=== PATIENT | male | born 1930 | race Caucasian/White ===

== ENCOUNTER 2017-04-09 10:12 | Inpatient (IN) ==
[2017-04-09] MEDS ORDERED: SODIUM CHLORIDE 0.9% 500 ML IV STA ×2 (10:22→12:27)
--- NOTE | 2017-04-09 10:38 | EKG Report ---
Stationary ECG Study [facility] ER Test Date: 04/09/2017 10:37:04 AM Pat Name: KEMAR HEMPHILL Department: Room: Gender: M Human Resources Safety Manager: : [id number] Requested by: Mauri Newman Order Number: [id number] Reading MD: YUE CASON Intervals [place] Rate: 73 P: 48 SD: 206 QRS: -52 QRSD: 167 T: 57 QT: 430 QTc: 456 Interpretive Statements SINUS RHYTHM WITH OCCASIONAL VENTRICULAR PREMATURE COMPLEXES RIGHT BUNDLE BRANCH BLOCK Electronically Signed On 04-11-17 12:14:02 CDT by YUE CASON [email or web address]
--- NOTE | 2017-04-09 10:41 | Emergency Department Note ---
Debra Drake Mantricia, am scribing for, and in the presence of, Mauri Spring MD 10:37. Clementine Drake James D, MD, personally performed the services described in this documentation, ascribed by Ashvin Richardson in my presence, and it is both accurate and complete 041 . Arrival - Arrival Chief Complaint: Abdominal / Flank Pain Stated Complaint: skin yellow, eyes yellow, stomach pain ED Nursing Triage Note: C/o LUQ pain and jaundice-onset "about two weeks ago", worse since yesterday. Mode of Arrival: Wheelchair Limitations: No Limitations Source: Patient - History of Present Illness HPI Narrative: Pt is an 87 y/o white male arriving to ED via wheelchair with c/o abdominal pain that onset 2 weeks ago. Family reports that pt was seen by [facility] nurse yesterday that performed labs on pt. [facility] states that pt may have a possible UTI with elevated liver enzymes and that his blood culture results would be back tomorrow. Daughter reports that pt has had dark urine for the past 2 weeks also along with jaundice all over. Pt denies any dysuria or blood in urine. Daughter states that pt does not smoke or drink but has done both heavily in his younger years. Pt has a PMHx of DM, HTN, and diverticulitis. No other complaints were reported to ED. Onset (ago): week(s) Consistency: constant Severity: mild Allergies/Adverse Reactions: Allergies Allergy/AdvReac Type Severity Reaction Status Date / Time No Known Allergies Allergy Verified 04/09/17 10:16 Home Medications: Home Medications Medication Instructions Recorded Confirmed Type Aspirin EC Tab 1 tablet PO QAM 06/22/15 04/09/17 History Atorvastatin Calcium [Lipitor] 40 mg PO BEDTIME 06/22/15 04/09/17 History Cetirizine HCl [Cetirizine Tab] 10 mg PO QAM 06/22/15 04/09/17 History Donepezil HCl 10 mg PO QAM 06/22/15 04/09/17 History Doxepin HCl 50 mg PO BEDTIME 06/22/15 04/09/17 History Gabapentin [Neurontin] 400 mg PO 0800,1400,2000 06/22/15 04/09/17 History Memantine HCl 10 mg PO BID 06/22/15 04/09/17 History Multivitamin [Multivitamins] 1 tablet PO QAM 06/22/15 04/09/17 History [place]-3S/Dha/Epa/Fish Oil [Fish 2 each PO BID 06/22/15 04/09/17 History Oil 1,200 mg Softgel] Ranitidine Tab [Zantac Tab] 150 mg PO BID 06/22/15 04/09/17 History Risperidone 0.5 mg PO BEDTIME 06/22/15 04/09/17 History Sertraline HCl 50 mg PO QAM 06/22/15 04/09/17 History Alfuzosin HCl [Alfuzosin HCl ER] 10 mg PO QPM 10/24/16 04/09/17 History Gluc/Kemal-MSM#1/C/Min/Esteban/Bor 1 each PO BID 10/24/16 04/09/17 History [Osteo Bi-Flex Caplet] Insulin NPH Hum/Reg Insulin Hm 46 unit SUBCUT BID PRN 10/24/16 04/09/17 History [NovoLIN 70/30] Nitroglycerin Sl Tab [Nitrostat] 0.4 mg SL Q5M PRN #0 tablet 10/26/16 04/09/17 Rx Acetaminophen 325 mg PO BID PRN 04/09/17 04/09/17 History Lisinopril 2.5 mg PO QAM 04/09/17 04/09/17 History Review of System - Review of System 12 point system: reviewed and no additional remarkable complaints except as stated - Review of System Constitutional: Absent: chills, diaphoresis, fever Respiratory: Absent: cough Cardiovascular: Absent: chest pain, palpitations Gastrointestinal: Present: abdominal pain. Absent: nausea, vomiting, diarrhea Musculoskeletal: Absent: arm pain, back pain, leg pain, neck pain Skin: Present: change in color, other (jaundice). Absent: rash, lesions Medical,Surgical,& Family Hx - Medical History Cardio: History of: CAD (prior LAD stent placed around 2001), Hypertension, [place], Valvular Heart Disease (status post aortic valve replacement) Neurology: History of: Cerebrovascular Accident (left side 5/6 years ago), Dementia, Peripheral Neuropathy, Neurological Problems (tardive dyskinesia) Endocrine: History of: Diabetes Mellitus (IDDM), Dyslipidemia Respiratory: History of: COPD, Obstructive Sleep Apnea - Surgical History Cardiac Surgeries: Sugical HX of: Cardiac Catheterization (stents placed), Cardiac Surgery (aortic valve replacement) HEENT Surgeries: Surgical HX of: Tonsilectomy & Adenoidectomy Abdominal Surgeries: Surgical HX of: Appendectomy Orthopedic Surgeries: Surgical HX of;: Orthopedic Surgery (bilateral rotator cuff surgery), Total Knee Replacement (right) - Family History Family History: Reports;: Family Diabetes (mother), Family Heart Disease (mother ), Family Hypertension (mother) - Social History Smoking Status: Never smoker Frequency of Alcohol Use: None Type of Drug Use: None Exam Physical Examination: ADULT: GENERAL: This is a well-nourished, well-developed white male in no apparent distress. VITAL SIGNS: Reviewed HEENT: Head is normocephalic and atraumatic. Pupils are equally round and reactive to light. Extraocular movement are intact. Scleral icterus. Oropharynx is benign with moist mucous membranes. NECK: Neck is soft and supple without tenderness. There are no masses. There is no lymphadenopathy. LUNGS: Lungs are clear to auscultation bilaterally. Chest rises symmetrically. There is no chest wall tenderness. CV: Heart is regular rate and rhythm without murmurs, rubs, or gallops. ABDOMEN: Abdomen is soft, tender to palpation in upper quadrants. There are no abnormal masses palpated. There is no organomegaly. Bowel sounds are present and active. SKIN: Skin is warm and dry with jaundice noted. No rash. EXTREMITIES: Patient has full range of motion without tenderness. There is no pedal edema. NEUROLOGIC: Awake, alert, and oriented x4. Cranial nerves II through XII are grossly intact. There are no motorsensory deficits. PSYCHIATRIC: Normal affect. Normal mood. Vital Signs: Vital Signs Temperature 98.1 F 04/09/17 11:21 Pulse Rate 52 L 04/09/17 12:01 Respiratory Rate 16 04/09/17 12:01 Blood Pressure 136/50 04/09/17 12:01 O2 Sat by Pulse Oximetry 99 04/09/17 12:01 Course - Consultations Consultation #1: Discussed with hospitalist. Patient will be admitted to their service. Time: 12:33 Results - Labs CBC & BMP: 04/09/17 10:58 04/09/17 10:58 Lab Results: I have reviewed the patients labs Labs: Laboratory Tests 04/09/17 04/09/17 10:22 10:58 Lipase 1199.0 H Urine pH 5.0 Ur Specific [place] 1.013 Urine Protein 100 Urine RBC 1 Urine WBC 4 - EKG EKG results: interpreted by ERMD - Impressions EKG: Sinus rhythm with occasional PVCs, right bundle branch block, low voltage QRS in precordial leads. - Diagnostic Findings Procedure: Abdominal x-ray: image reviewed by me (Nonspecific gas pattern, no free air, gas in the rectum.), Chest x-ray: image reviewed by me (Old median sternotomy, no infiltrates, no pleural effusions), Ultrasound: report reviewed by me (Gallbladder ultrasound: Distended gallbladder with sludge present) Disposition Clinical Impression: Abdominal pain, Jaundice, Cholelithiasis, Acute pancreatitis Case discussed with: patient, patient's family Disposition: Still a Patient Condition: Stable Time of Disposition: 12:30
[2017-04-09 11:08] LABS: Basophils % 0.3 % (0.0-0.8); Eosinophils # 0.1 10*3/uL (0.0-0.87); Eosinophils % 1.9 % (0.00-10.9); Hematocrit 31.3 VOL% (42.0-52.0); Hemoglobin 10.4 GM/DL (14.0-18.0); Immature Granulocytes % 0.3 %; Immature Granulocytes Absolute 0.02 #; Lymphocytes # 1.3 10*3/uL (1.4-4.0); Lymphocytes % 17.8 % (21.2-54.2); Mean Corpuscular HGB Conc 33.2 GM/DL (32-36); Mean Corpuscular Hemoglobin 30 PG (27-34); Mean Corpuscular Volume 88.7 FL (87-102); Mean Platelet Volume 11.7 FL (9.6-12.0); Monocytes # 0.9 10*3/uL (0.11-0.8); Monocytes % 11.8 % (1.7-12.7); Neutrophils # 5.1 10*3/uL (1.4-7.4); Neutrophils % 67.9 % (38.7-73.9); Platelet Count 113 T/CUMM (130-400); Red Blood Count 3.53 MC/CUMM (3.8-5.5); Red Cell Distribution Width 16.3 % (9.3-17.3); White Blood Count 7.5 T/CUMM (4-12)
--- NOTE | 2017-04-09 11:38 | XRay Report ---
History: Abdominal pain Date: 04/09/2017 Study: Chest x-ray AP portable Comparison exam: October 24, 2016 There is stable borderline cardiomegaly. The patient is status post previous median sternotomy and aortic valve replacement. There is no new mediastinal mass. The pulmonary vasculature is not engorged. There is no gross pleural effusion. There are some chronic lung changes. There is mild platelike subsegmental atelectasis in the right midlung. There is no definite acute infiltrate to suggest pneumonia. There is mild to moderate thoracic spondylosis and mild osteopenia. Surgical screws overlie the right humeral head. Impression: Shallow inspiration. No definite acute process compared to the previous study PROCEDURE INTERPRETED AT [facility] [place] DEPARTMENT OF RADIOLOGY Final Report Signed by: Dr. Conchis Solis
--- NOTE | 2017-04-09 11:41 | XRay Report ---
History: Abdominal pain Date: 04/09/2017 Study: Flat and decubitus abdomen x-ray Comparison exam: CT abdomen February 20, 2016 There is no evidence of pneumoperitoneum. The bowel gas pattern is nonspecific without jennie mechanical obstruction or gross mass lesion. Some occasional air filled loops of large and small bowel are scattered over the abdomen. No gross radiopaque calculi are seen. There is mild to moderate lumbar spondylosis. Impression: No definite acute abdominal process PROCEDURE INTERPRETED AT [facility] DEPARTMENT OF RADIOLOGY Final Report Signed by: Dr. Conchis Solis
[2017-04-09 11:43] LABS: Bilirubin,Total 6.5 MG/DL (0.2-1.0); Calcium 9.4 MG/DL (8.5-10.1); Osmolality,Calculated 293.3 MOS/KG (273-304); Potassium 3.7 MMOL/L (3.5-5.1); Total Protein 7.5 G/DL (6.4-8.3)
[2017-04-09 12:10] LABS: Apearance,Urine CLOUDY (Clear); Bilirubin,Urine Negative (Negative); Blood, Urine Small mg/dL (Negative); Glucose,Urine (UA) Negative (Negative); Granular Casts,Urine 28 /LPF (0-1); Ketones,Urine Negative (Negative); Mucus,Urine Occasional /LPF (Occasional); Nitrite,Urine Negative (Negative); Protein,Urine 100 MG/DL; RBC,Urine 1 /HPF (0-4); Squamous Epithelial Cell,Urine Occasional /HPF (0-10); Urine Color Amber (Yellow); Urine Specific Gravity 1.013 (1.001-1.035); WBC,Urine 4 /HPF (0-6)
--- NOTE | 2017-04-09 12:16 | Ultrasound Report ---
Exam: US abdomen complete Date:04/09/2017 10:25 AM Comparison: January 01, 2009 Indication: Abdominal pain Technique: Real-time ultrasound images are captured and archived. Findings: The pancreas is largely obscured by bowel gas. There is no focal hepatic mass. There is hepatopedal flow in the portal vein. The gallbladder is moderately distended and contains a moderate amount of hypoechoic sludge. There is no gallbladder wall thickening. There is no abnormal biliary dilatation of significance. There is no hydronephrosis. There is no renal lesion on the right. There are 2 simple cysts of the left kidney, the larger of which measures 24 mm. There is no splenic mass. The IVC is grossly patent where seen. The abdominal aorta is largely obscured by bowel gas. Impression: Sludge in the gallbladder. No classic shadowing gallstones. Benign simple renal cyst left kidney IMPORTANT MEASUREMENTS Liver Length: 18.2 cm cm Gallbladder Wall Thickness: 2.7 mm mm CBD: 6 mm mm Pancreas: Spleen: Length 11.6 cm cm Width 4.9 cm cm Right kidney: Length: 10.9 cm cm Width: 5.2 cm cm AP: 5.3 cm cm Left kidney: Length: 11 cmcm Width 4.8 cm cm AP 5.4 cmcm The Ultrasound images were captured and stored. PROCEDURE INTERPRETED AT [facility] [place] DEPARTMENT OF RADIOLOGY Final Report Signed by: Dr. Conchis Solis
[2017-04-09] MEDS ORDERED: DOCUSATE SODIUM 100 MG CAPSULE PO PRN (13:07)
[2017-04-09] MEDS ORDERED: ACETAMINOPHEN 325 MG TABLET PO PRN (13:07)
--- NOTE | 2017-04-09 14:52 | Hospitalist History & Physical ---
Assessment and Plan - Time spent with patient Time spent with patient: Greater than 30 minutes (1) Abdominal pain Status: Acute Assessment and plan: 04/09/17 - Admit to hospitalist services. Will start fluids. Will start antibiotics. Will repeat labs in a.m. Will consult GI. Current Visit: Yes (2) Acute pancreatitis Status: Acute Assessment and plan: MILD and stable. NPO. Start fluids. Will consult GI for further evaluation of abdominal pain. Current Visit: Yes (3) Jaundice Status: Acute Assessment and plan: Admit. Monitor. Repeat labs. Consult GI. Start antibiotics. Current Visit: Yes History of Present Illness Chief complaint: abdominal pain/flank pain History of present illness: Mr. Vallecillo is a 87 year old white male presented to [facility] ED for c/ o abdominal and flank pain with onset 2 weeks ago. PMHx: Diabetes, HTN, [place], Valvular disease (aortic valve replacement), CVA (5 years ago), Dementia, Peripheral neuropathy, Tardive dyskinesia, COPD, Obstructive Sleep Apnea, diverticulitis. Patient verbalized lower abdominal pain more on the left side but has generalized pain. Family reports patient was seen at the [facility] yesterday with lab work drawn, the nurse informed them of possible UTI and elevated liver enzymes. Blood cultures were drawn, results possibly tomorrow. Daughter reports patient has had dark urine for approximately 2 weeks with jaundice all over. Patient denies shortness of breath, fever, chills, nausea or vomiting. Patient does not currently drink alcohol but did in younger years , heavily. Denies smoking. Lipase 1199.0, AST 344, ALT 442, Total Bilirubin 6.50. BUN 43 and Creatinine 2.50 PCP: [facility] (home health), Dr Sanchez and Cardiology: Dr Serra After discussion with Dr Spring in ED and Dr Christy with Hospitalist services, it was in agreement to admit patient for further evaluation and management. Home medications will be reviewed and reconciliation to follow. Home Medications Medication Instructions Recorded Confirmed Type Aspirin EC Tab 1 tablet PO QAM 06/22/15 04/09/17 History Atorvastatin Calcium [Lipitor] 40 mg PO BEDTIME 06/22/15 04/09/17 History Cetirizine HCl [Cetirizine Tab] 10 mg PO QAM 06/22/15 04/09/17 History Donepezil HCl 10 mg PO QAM 06/22/15 04/09/17 History Doxepin HCl 50 mg PO BEDTIME 06/22/15 04/09/17 History Gabapentin [Neurontin] 400 mg PO 0800,1400,199906/22/15 04/09/17 History Memantine HCl 10 mg PO BID 06/22/15 04/09/17 History Multivitamin [Multivitamins] 1 tablet PO QAM 06/22/15 04/09/17 History [place]-3S/Dha/Epa/Fish Oil [Fish 2 each PO BID 06/22/15 04/09/17 History Oil 1,200 mg Softgel] Ranitidine Tab [Zantac Tab] 150 mg PO BID 06/22/15 04/09/17 History Risperidone 0.5 mg PO BEDTIME 06/22/15 04/09/17 History Sertraline HCl 50 mg PO QAM 06/22/15 04/09/17 History Alfuzosin HCl [Alfuzosin HCl ER] 10 mg PO QPM 10/24/16 04/09/17 History Gluc/Kemal-MSM#1/C/Min/Esteban/Bor 1 each PO BID 10/24/16 04/09/17 History [Osteo Bi-Flex Caplet] Insulin NPH Hum/Reg Insulin Hm 46 unit SUBCUT BID PRN 10/24/16 04/09/17 History [NovoLIN 70/30] Nitroglycerin Sl Tab [Nitrostat] 0.4 mg SL Q5M PRN #0 tablet 10/26/16 04/09/17 Rx Acetaminophen 325 mg PO BID PRN 04/09/17 04/09/17 History Lisinopril 2.5 mg PO QAM 04/09/17 04/09/17 History Allergies Allergy/AdvReac Type Severity Reaction Status Date / Time No Known Allergies Allergy Verified 04/09/17 10:16 Medical,Surgical,& Family Hx - Medical History Cardio: History of: CAD (prior LAD stent placed around 2001), Hypertension, [place], Valvular Heart Disease (status post aortic valve replacement) Neurology: History of: Cerebrovascular Accident (left side 5/6 years ago), Dementia, Peripheral Neuropathy, Neurological Problems (tardive dyskinesia) Endocrine: History of: Diabetes Mellitus (IDDM), Dyslipidemia Respiratory: History of: COPD, Obstructive Sleep Apnea - Surgical History Cardiac Surgeries: Sugical HX of: Cardiac Catheterization (stents placed), Cardiac Surgery (aortic valve replacement) HEENT Surgeries: Surgical HX of: Tonsilectomy & Adenoidectomy Abdominal Surgeries: Surgical HX of: Appendectomy Orthopedic Surgeries: Surgical HX of;: Orthopedic Surgery (bilateral rotator cuff surgery), Total Knee Replacement (right) - Family History Family History: Reports;: Family Diabetes (mother), Family Heart Disease (mother ), Family Hypertension (mother) - Social History Smoking Status: Never smoker Frequency of Alcohol Use: None Type of Drug Use: None Review of systems: ROS completed and pertinent positives and negatives in HPI. Exam - Constitutional Vitals: Period Temp Pulse Resp BP Sys/De Oliveira Pulse Ox Last 24 Hr 98.1 F-98.1 F 52-75 14-20 123-140/5-67 97-100 General appearance: over weight - Head Head exam: Present: normal inspection - Eye Eye exam: Present: EOMI Pupils: Present: JACKIE - Neck Neck exam: Present: normal inspection - Respiratory Respiratory exam: Present: clear to auscultation bilaterally - Cardiovascular Cardiovascular exam: Present: regular rate and rhythm - GI/Abdominal GI/Abdominal exam: Present: normal bowel sounds, tenderness (more on left side than right), soft. Absent: guarding - Extremities Exam Extremities exam: Present: full ROM. Absent: edema - Neurological Exam Neurological exam: Present: alert, oriented X3, CN II-XII intact - Psychiatric Psychiatric exam: Present: normal affect, normal mood. Absent: anxious - Skin Skin exam: Present: warm, dry (Jaundice, no rash noted) Results - Labs CBC & BMP: 04/09/17 10:58 04/09/17 10:58 Lab Results: I have reviewed the past 24 hour labs Labs: Lipase 1199.0 AST 344 ALT 442 Alkaline phosphatase 796 Total Bilirubin 6.50 Urine - negative - Diagnostic Findings Procedure: Chest x-ray: report reviewed by me (shallow inspiration, no definite acute process compared to previous study), CT: report reviewed by me (Abd: no definite acute abdominal process)
[2017-04-09] MEDS ORDERED: INSULIN NPH/REGULAR 70/30 100 UNIT/ML SUBCUT PRN (15:16)
[2017-04-09] MEDS ORDERED: NIFEdipine 10 MG CAPSULE PO PRN (15:16)
[2017-04-09] MEDS ORDERED: NITROGLYCERIN SL 0.4 MG TABLET SL PRN (15:16)
[2017-04-09] MEDS: SODIUM CHLORIDE 0.9% 1,000 ML IV SCH (15:29)
[2017-04-09] MEDS ORDERED: GLUCAGON 1 MG VIAL IM PRN ×2 (15:32→16:20)
[2017-04-09] MEDS ORDERED: DEXTROSE 50% 25 GM/50 ML SYRINGE IV PRN (15:32)
[2017-04-09] MEDS: LEVOFLOXACIN INJ 750 MG in PREMIX 1 EACH IV SCH (15:43)
--- NOTE | 2017-04-09 16:16 | Gastrointestinal Consult Note ---
Assessment and Plan (1) Abdominal pain Status: Acute Assessment and plan: 04/09-2 week history of LLQ abdominal pain w/o other associated symptoms. No reports of melena or hematochezia. Gradual weight loss over last several years. Plan and addendum to follow by Dr Solis Current Visit: Yes (2) Jaundice Status: Acute Assessment and plan: 04/09-Several day history of jaundice with findings of elevated LFTs with bilirubin 6.5, AST 344, ALT 442, and alkaline phosphatase 796. Also findings of elevated lipase at 1199. Ultrasound results noted for sludge in the gallbladder with no shadowing stones and common bile duct at 6 mm. Plan an addendum to followed by Dr. Irma ray Current Visit: Yes History of Present Illness Chief complaint: Obstructive jaundice History of present illness: Mr. Vallecillo is a 87 year old male who was admitted to the hospital with a two- week history of lower abdominal pain and painless jaundice. Patient is a fair historian due to dementia however his daughter is present at bedside contributes to history. Patient has a prior history of dementia, diabetes mellitus, hypertension, Alzheimer's, CAD, and aortic valve replacement. Patient began complaining of some lower quadrant abdominal pain approximately 2 weeks ago. He reported no other associated symptoms along with this including any bowel habit changes, melena, or hematochezia. He denies any other associated factors including nausea or vomiting. Patient's daughter states that several days ago he began to notice that his urine became darker and his skin was beginning to yellow. He was seen at the [facility] and noted at that time to have elevated liver enzymes as well as a possible urinary tract infection. Patient has no prior history of liver disease or gallbladder disease. He has no recent alcohol history other than 40 years ago and was not reported to be heavy at that time. He denies any fever or chills. On admission on ultrasound he was noted to have sludge in the gallbladder with no classic shadowing stones and a common bile duct of 6 mm. There is also no biliary dilation noted of significance. His daughter reports that he has had some gradual weight loss over the last several years. He lives at home with his . Home Medications Medication Instructions Recorded Confirmed Type Aspirin EC Tab 1 tablet PO QAM 06/22/15 04/09/17 History Atorvastatin Calcium [Lipitor] 40 mg PO BEDTIME 06/22/15 04/09/17 History Cetirizine HCl [Cetirizine Tab] 10 mg PO QAM 06/22/15 04/09/17 History Donepezil HCl 10 mg PO QAM 06/22/15 04/09/17 History Doxepin HCl 50 mg PO BEDTIME 06/22/15 04/09/17 History Gabapentin [Neurontin] 400 mg PO 0800,1400,2000 06/22/15 04/09/17 History Memantine HCl 10 mg PO BID 06/22/15 04/09/17 History Multivitamin [Multivitamins] 1 tablet PO QAM 06/22/15 04/09/17 History [place]-3S/Dha/Epa/Fish Oil [Fish 2 each PO BID 06/22/15 04/09/17 History Oil 1,200 mg Softgel] Ranitidine Tab [Zantac Tab] 150 mg PO BID 06/22/15 04/09/17 History Risperidone 0.5 mg PO BEDTIME 06/22/15 04/09/17 History Sertraline HCl 50 mg PO QAM 06/22/15 04/09/17 History Alfuzosin HCl [Alfuzosin HCl ER] 10 mg PO QPM 10/24/16 04/09/17 History Gluc/Kemal-MSM#1/C/Min/Esteban/Bor 1 each PO BID 10/24/16 04/09/17 History [Osteo Bi-Flex Caplet] Insulin NPH Hum/Reg Insulin Hm 46 unit SUBCUT BID PRN 10/24/16 04/09/17 History [NovoLIN 70/30] Nitroglycerin Sl Tab [Nitrostat] 0.4 mg SL Q5M PRN #0 tablet 10/26/16 04/09/17 Rx Acetaminophen 325 mg PO BID PRN 04/09/17 04/09/17 History Lisinopril 2.5 mg PO QAM 04/09/17 04/09/17 History Allergies Allergy/AdvReac Type Severity Reaction Status Date / Time No Known Allergies Allergy Verified 04/09/17 10:16 Medical,Surgical,& Family Hx - Medical History Cardio: History of: CAD (prior LAD stent placed around 2001), Hypertension, [place], Valvular Heart Disease (status post aortic valve replacement) Neurology: History of: Cerebrovascular Accident (left side 5/6 years ago), Dementia, Peripheral Neuropathy, Neurological Problems (tardive dyskinesia) Endocrine: History of: Diabetes Mellitus (IDDM), Dyslipidemia Respiratory: History of: COPD, Obstructive Sleep Apnea - Surgical History Cardiac Surgeries: Sugical HX of: Cardiac Catheterization (stents placed), Cardiac Surgery (aortic valve replacement) HEENT Surgeries: Surgical HX of: Tonsilectomy & Adenoidectomy Abdominal Surgeries: Surgical HX of: Appendectomy Orthopedic Surgeries: Surgical HX of;: Orthopedic Surgery (bilateral rotator cuff surgery), Total Knee Replacement (right) - Family History Family History: Reports;: Family Diabetes (mother), Family Heart Disease (mother ), Family Hypertension (mother) - Social History Smoking Status: Never smoker Frequency of Alcohol Use: None Type of Drug Use: None 12 point system: reviewed and no additional remarkable complaints except as stated - Constitutional Constitutional: Present: as per HPI - EENT Eyes: Present: as per HPI Ears: Present: as per HPI Nose, mouth and throat: Present: as per HPI - Cardiovascular Cardiovascular: Present: as per HPI - Respiratory Respiratory: Present: as per HPI - Gastrointestinal Gastrointestinal: Present: as per HPI, abdominal pain - Genitourinary Genitourinary: Present: as per HPI - Musculoskeletal Musculoskeletal: Present: as per HPI - Neurological Neurological: Present: as per HPI - Psychiatric Psychiatric: Present: as per HPI - Endocrine Endocrine: Present: as per HPI - Hematologic/Lymphatic Hematologic/Lymphatic: Present: as per HPI, other (jaundice) Exam - Constitutional Vitals: Period Temp Pulse Resp BP Sys/De Oliveira Pulse Ox Last 24 Hr 97.7 F-98.1 F 52-75 14-22 123-140/5-67 96-100 General appearance: no acute distress, over weight - Head Head exam: Present: normal inspection, normocephalic - Eye Eye exam: Present: scleral icterus, other (lids and conjunctiva unremarkable) - ENT ENT exam: Present: normal exam, normal oropharynx - Neck Neck exam: Present: normal inspection - Respiratory Respiratory exam: Present: clear to auscultation bilaterally. Absent: rales, rhonchi, wheezes - Cardiovascular Cardiovascular exam: Present: regular rate and rhythm. Absent: diastolic murmur , JVD, systolic murmur - GI/Abdominal GI/Abdominal exam: Present: normal bowel sounds, tenderness (LLQ), soft. Absent : ascites, distended, mass, organomegaly - Extremities Exam Extremities exam: Present: normal inspection, full ROM - Back Exam Back exam: Present: normal inspection - Neurological Exam Neurological exam: Present: alert, oriented X3 - Psychiatric Psychiatric exam: Present: normal affect, normal mood - Skin Skin exam: Present: normal color, warm, dry, other (jaundice) Results - Labs CBC & BMP: 04/09/17 10:58 04/09/17 10:58 Lab Results: I have reviewed the past 24 hour labs - Diagnostic Findings Procedure: Ultrasound: report reviewed by me
[2017-04-09] MEDS ORDERED: DEXTROSE 50% 25 GM/50 ML VIAL IV PRN (16:20)
[2017-04-09] MEDS: INSULIN LISPRO 100 UNIT/ML SUBCUT SCH (17:56)
[2017-04-09] MEDS: FAMOTIDINE 20 MG/2 ML VIAL IV SCH (17:57)
[2017-04-09] MEDS: DOXEPIN 25 MG CAPSULE PO SCH (21:26)
[2017-04-09] MEDS: risperiDONE 1 MG TABLET PO SCH (21:26)
[2017-04-09] MEDS: cefTRIAXone 1,000 MG in SODIUM CHLORIDE 0.9% 100 ML IV SCH (21:27)
[2017-04-10] MEDS: INSULIN LISPRO 100 UNIT/ML SUBCUT SCH ×4 (00:53→18:08)
[2017-04-10] MEDS: SODIUM CHLORIDE 0.9% 1,000 ML IV SCH ×4 (01:38→23:39)
[2017-04-10 05:39] LABS: Basophils % 0.3 % (0.0-0.8); Eosinophils # 0.1 10*3/uL (0.0-0.87); Eosinophils % 1.5 % (0.00-10.9); Hematocrit 27.5 VOL% (42.0-52.0); Immature Granulocytes % 0.3 %; Immature Granulocytes Absolute 0.02 #; Lymphocytes # 1.6 10*3/uL (1.4-4.0); Lymphocytes % 20.4 % (21.2-54.2); Mean Corpuscular HGB Conc 32.7 GM/DL (32-36); Mean Corpuscular Hemoglobin 29 PG (27-34); Mean Corpuscular Volume 89.6 FL (87-102); Mean Platelet Volume 12.2 FL (9.6-12.0); Monocytes % 13.5 % (1.7-12.7); Neutrophils # 4.9 10*3/uL (1.4-7.4); Platelet Count 101 T/CUMM (130-400); Red Blood Count 3.07 MC/CUMM (3.8-5.5); Red Cell Distribution Width 16.7 % (9.3-17.3); White Blood Count 7.6 T/CUMM (4-12)
[2017-04-10 06:13] LABS: Alanine Aminotransferase 375 U/L (16-61); Albumin 2.4 G/DL (3.4-5.0); Alkaline Phosphatase 753 U/L (45-117); Aspartate Amino Transferase 311 U/L (0-37); Blood Urea Nitrogen 35 MG/DL (7-18); Calcium 8.2 MG/DL (8.5-10.1); Cholesterol 122 MG/DL (50-200); Glucose 112 MG/DL (74-106); HDL Cholesterol < 10 MG/DL (40-60); Osmolality,Calculated 294.8 MOS/KG (273-304); Potassium 3.3 MMOL/L (3.5-5.1); Sodium 144 MMOL/L (136-145); Total Protein 5.7 G/DL (6.4-8.3); Triglycerides 207 MG/DL (2-150); VLDL CHOLESTEROL 41.4 MG/DL
--- NOTE | 2017-04-10 07:02 | Physician Query Form ---
CLICK EDIT DOCUMENT TO SELECT QUERY ANSWER --> OK --> SIGN Vanessa Conway RN, CCDS Certified Clinical Straightening Press Operator W) [phone] (f) [phone] [email or web address] PROVIDERS: Make your selection(s) from the choices in EACH section by typing an "x" and enter comments in the comment section. Please use your independent medical judgment in providing your response. This request does not imply that any particular answer is desired or expected. CLINICAL INDICATORS: (Providers should not edit this section) The medical record indicates that the patient was admitted with choledocholithiasis sludge, creatinine of 2.50 on the that has dropped to 2.20 on the 28, GFR of 30 on the that has increased to 34 on the 28 and the patient is on IVF's. 500 cc bolus in the ER Clarify which of the following most accurately represents the patient's renal status: ( X) Acute kidney injury (non-traumatic) ( ) Acute renal failure ( ) Acute renal failure with underlying Chronic Kidney Disease (CKD) - please provide stage below ( ) Acute renal failure with pathological renal lesion ( ) Acute renal failure with necrosis ( ) tubular ( ) medullary ( ) cortical ( ) CKD - please provide stage below ( ) End Stage Renal Disease ( ) Acute interstitial nephritis ( ) Hepatorenal syndrome ( ) Other, please specify: ( ) Clinically unable to determine Chronic Kidney Disease Stages Source: National Kidney Disease Foundation ( ) Stage I (eGFR > or = 90) ( ) Stage II (eGFR 60 - 89) ( ) Stage III (eGFR 30 - 59) ( ) Stage IV (eGFR 15 - 29) ( ) Stage V (eGFR < 15 or dialysis) COMMENTS: PLEASE ALSO DOCUMENT RESPONSE IN PROGRESS NOTES AND/OR DISCHARGE SUMMARY Use of terms such as suspected, likely, or probable (associated with a specific diagnosis that is being evaluated, monitored, or treated as if it exists) are acceptable and can be restated in the discharge summary if not ruled out. MTDD
[2017-04-10 07:06] LABS: INR 1.2
--- NOTE | 2017-04-10 09:27 | Hospitalist Progress Note ---
Assessment and Plan (1) Jaundice Status: Acute Assessment and plan: The patient has obstructive jaundice. Dr. Solis plans ERCP this afternoon. Current Visit: Yes (2) Alzheimer's dementia Status: Chronic Current Visit: No (3) Cholelithiasis Status: Acute Current Visit: Yes (4) Acute pancreatitis Status: Acute Current Visit: Yes Hospitalist: Subjective Interval history: The patient is resting quietly in bed today. He is using nasal CPAP and is comfortable. Jaundice remains. Exam - Constitutional Vitals: Period Temp Pulse Resp BP Sys/De Oliveira Pulse Ox Last 24 Hr 97.2 F-99.3 F 51-84 14-22 114-150/5-67 94-100 General appearance: no acute distress - Respiratory Respiratory exam: Present: clear to auscultation bilaterally - Cardiovascular Cardiovascular exam: Present: regular rate and rhythm - GI/Abdominal GI/Abdominal exam: Present: hypoactive bowel sounds Results - Labs CBC & BMP: 04/10/17 05:27 04/10/17 05:26 Lab Results: I have reviewed the past 24 hour labs Labs: Bilirubin 5.8
[2017-04-10] MEDS ORDERED: fentaNYL 100 MCG/2 ML VIAL ONE (10:39)
[2017-04-10] MEDS ORDERED: MIDAZOLAM 2 MG/2 ML VIAL ONE (10:39)
[2017-04-10] MEDS ORDERED: ePHEDrine 50 MG/ML AMP ONE (10:43)
--- NOTE | 2017-04-10 12:34 | History and Physical Update ---
History and Physical Update - History and Physical H&P was reviewed, the patient examined and there: are no changes in the patients condition since last H&P was completed. - Physical Exam Mental Status: alert and oriented Heart: regular rate and rhythm Lung: clear to auscultation Abdomen: within normal limits Vitals: within normal limits
[2017-04-10] MEDS ORDERED: GLUCAGON 1 MG VIAL ONE (12:56)
--- NOTE | 2017-04-10 13:36 | Operative Note ---
Date of procedure: 04/10/17 Pre-op diagnosis: Obstructive jaundice Procedure: Procedure: Endoscopic retrograde cholangiopancreatography Brief clinical abstract: Patient is an 87-year-old male admitted with obstructive jaundice. He has had mildly elevated lipase but has had no pancreatic type pain. He complains of some left lower quadrant pain. Procedure findings: Patient was placed in the prone position. Diagnostic video duodenoscope was inserted in the upper soft in blind fashion with no resistance encountered. Esophageal mucosa appeared normal. Stomach was examined including retroflexed view of the cardia and fundus with no abnormality seen. The pyloric channel and duodenal bulb appeared normal. Second and third portion of the duodenum including the appearance of the ampulla were normal. Sphincterotome was used and cholangiogram obtained. There was a tight malignant appearing stricture in the distal common bile duct approximately 3 cm in length. Distal common bile duct had almost a 180 loop just above the ampulla and I could never deeply cannulate the common bile duct using 0.035 inch guidewire and also Acrobat guidewire. I attempted to obtain pancreatogram with repositioning of the endoscope but this was unsuccessful. Needle knife fistulotomy was performed to try to access the common bile duct deeply but this was unsuccessful with only submucosal injection of contrast noted. I elected to discontinue the procedure at this point. 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 Recommendations: CT abdomen with contrast to evaluate further. Serum CA-19-[address], decide about possible percutaneous access/ rendezvous procedure. Anesthesia: MAC Surgeon / Physician: James Solis Estimated blood loss: none Specimens: none sent Condition: stable Disposition: post procedure unit Results - Labs CBC & BMP: 04/10/17 05:27 04/10/17 05:26 Discharge Plan - Discharge Medications No Action Multivitamin [Multivitamins] 1 tablet PO QAM [place]-3S/Dha/Epa/Fish Oil [Fish Oil 1,200 mg Softgel] 2 each PO BID Sertraline HCl 50 mg PO QAM Ranitidine Tab [Zantac Tab] 150 mg PO BID Risperidone 0.5 mg PO BEDTIME Gabapentin [Neurontin] 400 mg PO 0800,1400,2000 Doxepin HCl 50 mg PO BEDTIME Atorvastatin Calcium [Lipitor] 40 mg PO BEDTIME Memantine HCl 10 mg PO BID Donepezil HCl 10 mg PO QAM Cetirizine HCl [Cetirizine Tab] 10 mg PO QAM Aspirin EC Tab 1 tablet PO QAM Gluc/Kemal-MSM#1/C/Min/Esteban/Bor [Osteo Bi-Flex Caplet] 1 each PO BID Alfuzosin HCl [Alfuzosin HCl ER] 10 mg PO QPM Insulin NPH Hum/Reg Insulin Hm [NovoLIN 70/30] 46 unit SUBCUT BID PRN PRN Reason: Glucose Management Nitroglycerin Sl Tab [Nitrostat] 0.4 mg SL Q5M PRN #0 tablet PRN Reason: Chest Pain Lisinopril 2.5 mg PO QAM Acetaminophen 325 mg PO BID PRN PRN Reason: Pain - Follow Up or Referral - Forms/Instructions
--- NOTE | 2017-04-10 13:44 | Anesthesia Post-Op ---
Anesthesia Post OP - Post Ansesthetic Evaluation Patient seen in post op: Yes Resp: within normal limits CV: within normal limits Mental: within normal limits Temp: within normal limits Uggh-Ki-Zsxrijetj: within normal limits Nausea and Vomiting: within normal limits Pain: within normal limits
--- NOTE | 2017-04-10 15:11 | Fluoroscopy Report ---
Exam: [place] ERCP Date: 04/10/2017 6:38 PM Indication: Obstructive jaundice Comparison: Ultrasound 04/09/2017 Findings: 5 minutes and 20 seconds fluoroscopy time and 17 cc of Omnipaque [address] Facundo Solis. 6 total fluoroscopic images were submitted with images stored and captured. Examination reveals an area of stricturing narrowing in the distal CBD there is some dilatation of the bile duct present. The left and right biliary radicals are demonstrated with mild prominence. Surgical clips present in the upper abdomen. Pancreatic duct is not evaluated. No defined filling defects in the bile duct present. Impression: 1. Stricturing narrowing of the distal common bile duct. Findings suspicious for possible low pancreatic neoplasm or cholangiocarcinoma which seems less likely as this appears to be have extrinsic mass effect. PROCEDURE INTERPRETED AT [facility] ([facility] DEPARTMENT OF RADIOLOGY Final Report Signed by: Dr. James Franco
[2017-04-10] MEDS: FAMOTIDINE 20 MG/2 ML VIAL IV SCH (15:18)
[2017-04-10] MEDS: ASPIRIN EC 81 MG TABLET PO SCH (15:46)
[2017-04-10] MEDS ORDERED: ETOMIDATE 20 MG/10 ML VIAL IV ONE (18:05)
[2017-04-10] MEDS ORDERED: SEVOFLURANE 1 UNIT/15 MINUTE INH ONE (18:05)
[2017-04-10] MEDS ORDERED: ONDANSETRON 4 MG/2 ML VIAL ONE (18:05)
[2017-04-10] MEDS ORDERED: LIDOCAINE 1% 5 ML VIAL ONE (18:05)
[2017-04-10] MEDS: cefTRIAXone 1,000 MG in SODIUM CHLORIDE 0.9% 100 ML IV SCH (21:18)
[2017-04-10] MEDS: risperiDONE 1 MG TABLET PO SCH (21:19)
[2017-04-10] MEDS: DOXEPIN 25 MG CAPSULE PO SCH (21:19)
[2017-04-11] MEDS: INSULIN LISPRO 100 UNIT/ML SUBCUT SCH ×4 (00:13→18:18)
[2017-04-11] MEDS: SODIUM CHLORIDE 0.9% 1,000 ML IV SCH ×5 (02:20→21:45)
[2017-04-11] MEDS ORDERED: DEXTROSE 50% 25 GM/50 ML SYRINGE IV PRN (07:33)
--- NOTE | 2017-04-11 07:38 | Gastrointestinal Progress Note ---
Assessment and Plan (1) Obstructive jaundice Status: Acute Assessment and plan: This is a patient of Dr. Solis's who is being seen for him over the weekend. The patient has what appears to be a 3 cm stricture in the distal common bile duct likely associated with some sort of malignancy either cholangiocarcinoma or external compression from pancreatic cancer. CA 19-9 is pending. Unfortunately the duct is extremely ectatic and deep cannulation using wires during ERCP were not successful. CT scan is pending at this point and the patient is being considered either for percutaneous drainage versus use of a guidewire into the common bile duct in order to facilitate rendezvous placement of biliary stent during ERCP. This may take place on Thursday or Thursday, provided the patient has ductal dilatation during CT scan which is being read today. Liver function tests are pending from today. We will also keep an eye on the pancreatic enzymes as these are also elevated. There is a chance this could also be stone disease although this is less likely. Current Visit: Yes (2) Cholelithiasis Status: Acute Assessment and plan: Patient does have gallstones by ultrasound, as per the findings on ERCP these are less likely to be a source for the patient's symptoms and pancreatitis but choledocholithiasis and microlithiasis remain in the differential. Current Visit: Yes (3) Abnormal CT scan, gastrointestinal tract Status: Acute Assessment and plan: This refers to the presumed findings of pancreatitis and likely ductal dilatation to be seen on CT scan today. The patient is not having any problems with congestive heart failure and I will go ahead and have his Lee removed and cut back on his fluids as he wishes to try and eat today. 1800-calorie ADA diet written. If he is due for a rendezvous procedure we may make him n.p.o. after midnight on Thursday for this procedure. Current Visit: Yes (4) Acute pancreatitis Status: Acute Assessment and plan: Patient's lipase level was 1199. Will follow this again tomorrow. There may be an associated inflammation around the pancreas versus irritation from pancreatic cancer potentially. Current Visit: Yes Gastroenterology - PN: Subj Interval history: Patient is having some diffuse abdominal pain but seems to mostly have this in the left lower quadrant. He is constipated since coming to the hospital. His main complaint is actually that of having the Lee in place and this producing the sensation like he has to urinate all the time. His fluids are running at 120 mL/hr and I think at this point he could probably eat. He is hungry. He has no other complaints, the findings of the ERCP were explained to his daughter at the bedside, Zaida. Exam (Progress Note) - Constitutional Vitals: Period Temp Pulse Resp BP Sys/De Oliveira Pulse Ox Last 24 Hr 97.2 F-99.9 F 51-99 16-22 125-161/45-049 92-100 General appearance: mild distress - Head Head exam: Present: normal inspection - Eye Eye exam: Present: scleral icterus - Respiratory Respiratory exam: Present: clear to auscultation bilaterally. Absent: rhonchi, stridor, wheezes - Cardiovascular Cardiovascular exam: Present: regular rate and rhythm - GI/Abdominal GI/Abdominal exam: Present: normal bowel sounds, tenderness (Patient is having mild tenderness all quadrants, seems to be worse in the left lower quadrant), soft. Absent: distended, guarding, rebound - Extremities Exam Extremities exam: Absent: edema - Neurological Exam Neurological exam: Present: alert, oriented X3, altered (Dementia noted.) - Psychiatric Psychiatric exam: Present: normal affect, normal mood - Skin Skin exam: Present: warm Results - Labs CBC & BMP: 04/10/17 05:27 04/10/17 05:26
[2017-04-11] MEDS: ASPIRIN EC 81 MG TABLET PO SCH (09:19)
[2017-04-11] MEDS: PANTOPRAZOLE 40 MG TABLET PO SCH (09:19)
--- NOTE | 2017-04-11 09:19 | CT Report ---
CT abdomen pelvis wo con Indication: Obstructive jaundice. Malignant appearing common bile duct stricture. Comparison: None. Technique: CT of the abdomen and pelvis was performed without administration of intravenous contrast. The CT examination was performed using one or more of the following dose reduction techniques: Automatic exposure control, adjustment of the mA and kV according to patient size, use of acute or iterative reconstruction techniques. Findings: Complete evaluation of solid organs, vascular structures, and bowel wall is not possible secondary to lack of intravenous contrast. Lower chest: Coronary artery calcifications and calcifications of the mitral valve anulus with possible valve prosthesis are noted. Mild chamber enlargement involving the left ventricle is present and mild cardiomegaly is present. Dependent atelectatic changes are noted bilaterally. Liver: There is moderate to severe enlargement of the intrahepatic biliary ductal system. No solid hepatic masses can clearly be identified. Gallbladder: Gallbladder is distended and contains a large amount of contrast as well as a few bubbles of air. This likely reflects recent procedure. Extrahepatic bile duct is difficult to identify but is minimally enlarged measuring 10 mm near the pancreatic head. Spleen: Punctate calcifications present within the spleen are compatible previous granulomatous disease. Pancreas: Lipomatous atrophy of the pancreas is demonstrated. Within the pancreatic head, there is an oval-shaped focus of soft tissue attenuation that has a more homogeneous appearance than the heterogeneous lipomatous change of the pancreatic head. This suggested mass measures 2.7 cm in oblique AP dimension and 1.3 cm in transverse dimension best measured on image #58. Adrenal glands: The adrenal glands demonstrate no significant abnormalities. Kidneys: Exophytic hypoattenuating structures projecting from the posterior and medial cortex of the mid to lower left kidney may represent cysts. Multiple renal vascular calcifications and diffuse intimal calcification of the bilateral renal arteries is demonstrated. Small 1 to 2 mm nonobstructing nephroliths are suggested bilaterally. Aorta: Diffuse intimal calcification of the aorta and iliac vessels is demonstrated. Inferior vena cava: Inferior vena cava is normal in appearance. Lymph nodes: No adenopathy is noted within the abdomen or pelvis. Stomach and bowel: Stomach and duodenum demonstrate no significant abnormalities. Small bowel is unremarkable in appearance. The appendix is not identified and may be surgically absent. Large bowel demonstrates multiple diverticula involving the descending large bowel. Nonspecific stranding within the pericolic fat is noted abutting the serosal surface image #113. The bowel wall was not well visualized. Intrapelvic contents: Lee catheter is present with decompressed urinary bladder noted. The prostate is enlarged. Osseous structures: The entirety of the osseous structures of the pelvis are not included on the study. Visualized portion of the pelvis and lumbar spine as well as lower rib cage and lower thoracic spine demonstrate no acute findings. Moderately advanced facet arthropathy is noted at L5-S1. Soft tissues and musculature: Soft tissues and musculature of the body wall demonstrate no acute findings. Impression: 1. There is a suggested oblong mass within the pancreatic head as detailed. 2. Intra and extrahepatic biliary ductal dilatation is present. 3. Retained contrast from ERCP is noted within the gallbladder. Dependent bubbles of air are likely related to recent procedure. 4. Multiple left renal cysts are suggested. 5. Early diverticulitis involving descending colon is not excluded. 6. Prostate enlargement is present. Differential considerations include benign prostatic hypertrophy as well as prostate neoplasm. 7. Moderately advanced facet arthropathy involving the lower lumbar spine is demonstrated at L5-S1. 04/11/2017 9:10 AM PROCEDURE INTERPRETED AT [facility] DEPARTMENT OF RADIOLOGY Final Report Signed by: Dr. John Conwya
[2017-04-11] MEDS: POLYETHYLENE GLYCOL POWDER 17 GM PACK PO SCH ×2 (09:33→20:00)
--- NOTE | 2017-04-11 11:20 | Hospitalist Progress Note ---
Assessment and Plan (1) Jaundice Status: Acute Assessment and plan: The patient has obstructive jaundice. ERCP reveals external compression of the common bile duct. CT scan reveals mass at the head of the pancreas. The patient will have interventional radiology evaluation for biliary drainage on Thursday. Current Visit: Yes (2) Alzheimer's dementia Status: Chronic Current Visit: No (3) Cholelithiasis Status: Acute Current Visit: Yes (4) Acute pancreatitis Status: Acute Current Visit: Yes Hospitalist: Subjective Interval history: The patient is resting quietly using BiPAP. He was up earlier this morning due to taking oral contrast for his CT scan. I had 24 minutes discussion with the patient's daughter for family conference. She is the patient's power of insurance legal assistant for healthcare matters. We discussed CODE STATUS and she wished the patient to be DO NOT RESUSCITATE. We discussed the findings of ERCP which included biliary obstruction with apparent external compression. We discussed the CT scan obtained this morning which revealed a mass at the head of the pancreas causing compression of the common bile duct. We discussed the concept of palliative care given his age and dementia. The patient's daughter wish for him to have palliative care. We discussed the difficulty that he will have with continued worsening jaundice. I recommended and she agreed that we should attempt to restore bile drainage with stent if possible. We discussed the possibilities of percutaneous, endoscopic, or combined procedure might be required. We discussed life expectancy of 6-18 months. Exam - Constitutional Vitals: Period Temp Pulse Resp BP Sys/De Oliveira Pulse Ox Last 24 Hr 97.2 F-99.9 F 51-99 16-22 125-161/45-049 91-100 General appearance: no acute distress - Respiratory Respiratory exam: Present: clear to auscultation bilaterally - Cardiovascular Cardiovascular exam: Present: regular rate and rhythm - GI/Abdominal GI/Abdominal exam: Present: hypoactive bowel sounds Results - Labs CBC & BMP: 04/10/17 05:27 04/10/17 05:26 Lab Results: I have reviewed the past 24 hour labs
[2017-04-11] MEDS: LEVOFLOXACIN INJ 750 MG in PREMIX 1 EACH IV SCH (16:14)
[2017-04-11] MEDS: DOXEPIN 25 MG CAPSULE PO SCH (20:00)
[2017-04-11] MEDS: risperiDONE 1 MG TABLET PO SCH (20:00)
[2017-04-11] MEDS: cefTRIAXone 1,000 MG in SODIUM CHLORIDE 0.9% 100 ML IV SCH (20:01)
[2017-04-12] MEDS: INSULIN LISPRO 100 UNIT/ML SUBCUT SCH ×4 (00:26→17:00)
[2017-04-12 06:40] LABS: Basophils % 0.2 % (0.0-0.8); Eosinophils # 0.2 10*3/uL (0.0-0.87); Eosinophils % 2.4 % (0.00-10.9); Hemoglobin 8.7 GM/DL (14.0-18.0); Immature Granulocytes % 0.6 %; Immature Granulocytes Absolute 0.04 #; Lymphocytes # 1.2 10*3/uL (1.4-4.0); Lymphocytes % 18.4 % (21.2-54.2); Mean Corpuscular HGB Conc 33.5 GM/DL (32-36); Mean Corpuscular Hemoglobin 29 PG (27-34); Mean Corpuscular Volume 87.2 FL (87-102); Mean Platelet Volume 11.8 FL (9.6-12.0); Monocytes # 0.7 10*3/uL (0.11-0.8); Monocytes % 10.7 % (1.7-12.7); Neutrophils # 4.3 10*3/uL (1.4-7.4); Neutrophils % 67.7 % (38.7-73.9); Platelet Count 94 T/CUMM (130-400); Red Blood Count 2.98 MC/CUMM (3.8-5.5); Red Cell Distribution Width 17.1 % (9.3-17.3); White Blood Count 6.4 T/CUMM (4-12)
[2017-04-12 07:14] LABS: Albumin 2.3 G/DL (3.4-5.0); Bilirubin,Total 7.5 MG/DL (0.2-1.0); Calcium 8.4 MG/DL (8.5-10.1); Osmolality,Calculated 294.8 MOS/KG (273-304); Potassium 3.2 MMOL/L (3.5-5.1); Total Protein 5.3 G/DL (6.4-8.3)
[2017-04-12 07:16] LABS: Troponin I Only 0.053 NG/ML (0.00-0.045)
[2017-04-12 07:42] LABS: Giant Platelets Few; Hypochromasia 1+; Ovalocytes Slight; Platelet Estimate Decreased
--- NOTE | 2017-04-12 08:25 | Hospitalist Progress Note ---
Assessment and Plan (1) Jaundice Status: Acute Assessment and plan: The patient has obstructive jaundice. ERCP reveals external compression of the common bile duct. CT scan reveals mass at the head of the pancreas. The patient will have interventional radiology evaluation for biliary drainage on Thursday. The patient is having some discomfort especially at night. I am going to add Dilaudid to help with his pain. I am going to restart Aricept and Zoloft to even his mood. Current Visit: Yes (2) Alzheimer's dementia Status: Chronic Current Visit: No (3) Cholelithiasis Status: Acute Current Visit: Yes (4) Acute pancreatitis Status: Acute Current Visit: Yes Hospitalist: Subjective Interval history: Mr. hawk is an 87-year-old man with history of dementia. He has obstructive sleep apnea and uses BiPAP. The patient is cared for at home by his daughter who is involved with his care and has DURABLE POWER OF WEB CONTENT EXECUTIVE for healthcare decision making due to his dementia. The patient was admitted to the hospital with jaundice. The patient is found to have mass at the head of the pancreas causing obstruction of the common bile duct. The patient's daughter is comfortable with transition to comfort care measures. Draining the liver will be a palliative procedure and biopsy of the pancreatic mass is likely not necessary. Exam - Constitutional Vitals: Period Temp Pulse Resp BP Sys/De Oliveira Pulse Ox Last 24 Hr 97.0 F-99.3 F 48-67 16-22 129-159/50-69 93-97 General appearance: over weight - Respiratory Respiratory exam: Present: clear to auscultation bilaterally - Cardiovascular Cardiovascular exam: Present: regular rate and rhythm - GI/Abdominal GI/Abdominal exam: Present: hypoactive bowel sounds, tenderness (Mild generalized to the bilateral upper quadrants), soft Results - Labs CBC & BMP: 04/12/17 06:29 04/12/17 06:29 Lab Results: I have reviewed the past 24 hour labs
[2017-04-12] MEDS: PANTOPRAZOLE 40 MG TABLET PO SCH (10:22)
[2017-04-12] MEDS: SERTRALINE 100 MG TABLET PO SCH (10:22)
[2017-04-12] MEDS: DONEPEZIL 10 MG TABLET PO SCH (10:22)
[2017-04-12] MEDS: ASPIRIN EC 81 MG TABLET PO SCH (10:23)
[2017-04-12] MEDS: POLYETHYLENE GLYCOL POWDER 17 GM PACK PO SCH ×2 (10:23→21:34)
[2017-04-12] MEDS: HYDROmorphone 2 MG/1 ML VIAL IV SCH ×3 (10:38→14:11)
[2017-04-12] MEDS: HYDROmorphone 2 MG/1 ML VIAL IV PRN (16:49)
[2017-04-12] MEDS: SODIUM CHLORIDE 0.9% 1,000 ML IV SCH ×2 (17:00→22:47)
[2017-04-12] MEDS: risperiDONE 1 MG TABLET PO SCH (21:37)
[2017-04-12] MEDS: DOXEPIN 25 MG CAPSULE PO SCH (21:38)
[2017-04-12] MEDS: cefTRIAXone 1,000 MG in SODIUM CHLORIDE 0.9% 100 ML IV SCH (21:40)
[2017-04-13] MEDS: INSULIN LISPRO 100 UNIT/ML SUBCUT SCH ×4 (00:02→18:26)
[2017-04-13] MEDS: HYDROmorphone 2 MG/1 ML VIAL IV PRN ×3 (00:04→18:27)
[2017-04-13] MEDS: SODIUM CHLORIDE 0.9% 1,000 ML IV SCH ×3 (05:08→18:26)
--- NOTE | 2017-04-13 09:33 | Gastrointestinal Progress Note ---
Assessment and Plan (1) Abdominal pain Status: Acute Assessment and plan: 04/13-no complaints of abdominal pain at present. CT findings noted as below. Elevated CA-19-9. Repeat LFTs today. Consult IR for possible PTC. Plan an addendum to follow Dr. Solis. 04/09-2 week history of LLQ abdominal pain w/o other associated symptoms. No reports of melena or hematochezia. Gradual weight loss over last several years. Plan and addendum to follow by Dr Solis Current Visit: Yes (2) Jaundice Status: Acute Assessment and plan: 04/09-Several day history of jaundice with findings of elevated LFTs with bilirubin 6.5, AST 344, ALT 442, and alkaline phosphatase 796. Also findings of elevated lipase at 1199. Ultrasound results noted for sludge in the gallbladder with no shadowing stones and common bile duct at 6 mm. Plan an addendum to followed by Dr. Solis peer Current Visit: Yes Gastroenterology - PN: Subj Interval history: CC: Obstructive jaundice Patient is seen, awake and alert, with family at bedside. States he had a restless night and did not sleep well however uncertain as to why. He denies any abdominal pain to me. Results of ERCP on Thursday noted with malignant appearing distal common bile duct stricture. Patient had CT of abdomen on Thursday with findings noted of oblong mass within the pancreatic head at 2.7 cm with intra-and extrahepatic biliary ductal dilatation. CA-19-9 also noted to be 6682. Lipase levels are trending downward at 677. Transaminases are essentially unchanged however bilirubin elevated at 7.5 on yesterday. Discussed findings with Dr. Solis and will consult interventional radiology at this time for possible PTC. Patient is n.p.o. and has not had anything to eat or drink since yesterday at noon on his own due to poor appetite. Abdomen is soft, nontender. ROS: Denies shortness of breath or chest pain Exam (Progress Note) - Constitutional Vitals: Period Temp Pulse Resp BP Sys/De Oliveira Pulse Ox Last 24 Hr 97.3 F-99.6 F 59-88 16-20 110-175/56-88 91-95 General appearance: no acute distress, over weight - Head Head exam: Present: normal inspection, normocephalic - Eye Eye exam: Present: scleral icterus, other (Lids and conjunctivae are unremarkable) - ENT ENT exam: Present: normal exam, normal oropharynx - Neck Neck exam: Present: normal inspection - Respiratory Respiratory exam: Present: clear to auscultation bilaterally. Absent: rales, rhonchi, wheezes - Cardiovascular Cardiovascular exam: Present: regular rate and rhythm. Absent: diastolic murmur , JVD, systolic murmur - GI/Abdominal GI/Abdominal exam: Present: normal bowel sounds, soft. Absent: ascites, distended, mass, organomegaly, tenderness - Extremities Exam Extremities exam: Present: normal inspection, full ROM - Back Exam Back exam: Present: normal inspection - Neurological Exam Neurological exam: Present: alert, oriented X3 - Psychiatric Psychiatric exam: Present: normal affect, normal mood - Skin Skin exam: Present: normal color, warm, dry Results - Labs CBC & BMP: 04/12/17 06:29 04/12/17 06:29 Lab Results: I have reviewed the past 24 hour labs - Diagnostic Findings Procedure: CT Abdomen and Pelvis: report reviewed by me
[2017-04-13] MEDS: POLYETHYLENE GLYCOL POWDER 17 GM PACK PO SCH ×2 (10:00→20:57)
[2017-04-13] MEDS: DONEPEZIL 10 MG TABLET PO SCH (10:00)
[2017-04-13] MEDS: ASPIRIN EC 81 MG TABLET PO SCH (10:00)
[2017-04-13] MEDS: PANTOPRAZOLE 40 MG TABLET PO SCH (10:01)
[2017-04-13] MEDS: SERTRALINE 100 MG TABLET PO SCH (10:01)
[2017-04-13 10:40] LABS: Albumin 2.4 G/DL (3.4-5.0); Bilirubin,Direct 7.5 MG/DL (0.0-0.20); Bilirubin,Indirect 1.3 MG/DL (0.0-1.0); Bilirubin,Total 8.8 MG/DL (0.2-1.0); Total Protein 5.6 G/DL (6.4-8.3)
[2017-04-13] MEDS ORDERED: DEXTROSE 5% NACL 0.45% 1,000 ML IV SCH (13:30)
--- NOTE | 2017-04-13 15:18 | IR History and Physical Update ---
IR Pre-Procedure - History and Physical H&P was reviewed, the patient examined and there: are no changes in the patients condition since last H&P was completed. Reason for procedure:: 87-year-old male with advanced dementia, and mass at the head of pancreas with new onset jaundice. He underwent ERCP over the weekend but they were unable to cannulate common bile duct for placement of a stent. PTC requested by primary service with option to stent the CBD. - Dictation Physical: refer to H&P completed by admitting physician - Physical Exam Vital Signs: Last Vital Signs Temp 99.1 F 04/13/17 12:25 Pulse 55 L 04/13/17 12:25 Resp 16 04/13/17 15:13 BP 144/58 04/13/17 12:25 Pulse Ox 93 L 04/13/17 12:25 Mental Status: other (Sleeping on CPAP after receiving pain medication at the time of the interview) - Sedation IR anesthesia plan for sedation: anesthesia consulted ASA Class: III - Risks Risks: Procedures explained. Risks discussed include, but not limited to, the following:[ Stent occlusion over time, external drainage] All questions answered. The following alternatives were discussed:[ none] Risks and benefits discussed with: other (Daughter) Consent obtained from: other (Daughter) Assessment and Plan - Time spent with patient Time spent with patient: Less than 30 minutes (1) Obstructive jaundice Status: Acute Assessment and plan: Assessment: Obstructive jaundice, pancreatic head mass, likely neoplasm. Plan: Percutaneous transhepatic cholangiogram with option to place internal/ external biliary drain catheter and/or metal stent at the time of the procedure. Current Visit: Yes
[2017-04-13] MEDS: LEVOFLOXACIN INJ 750 MG in PREMIX 1 EACH IV SCH (15:40)
--- NOTE | 2017-04-13 17:13 | Hospitalist Progress Note ---
Hospitalist: Subjective Interval history: 87-year-old male with advanced dementia, and mass at the head of pancreas with new onset jaundice. He underwent ERCP over the weekend but GI were unable to cannulate common bile duct for placement of a stent. IR consulted for PTC. Exam - Constitutional Vitals: Period Temp Pulse Resp BP Sys/De Oliveira Pulse Ox Last 24 Hr 96.3 F-99.6 F 55-88 16-20 110-175/56-90 90-93 Exam: General: [No Acute Distress] HEENT: [Jaundice] Neck: [Supple, No JVD] Chest: [Clear to auscultation B/L] CV: [S1 + S2 audible without murmur, gallop or rub] Abd: [soft, NT, Non-distended, BS +] Ext: [No edema] Skin: [No purpura, bruising or rash] Rheumatologic: [No Joint deformities] Neurologic: [No gross sensory deficits] Results - Labs CBC & BMP: 04/12/17 06:29 04/12/17 06:29 - Impressions (1) bstructive jaundice Status: Acute Assessment and plan: CT Abd revealed mass at the head of the pancreas. ERCP failed to stent common bile duct. Interventional radiology is considering PTC. Current Visit: Yes (2) Alzheimer's dementia Status: Chronic Current Visit: No (3) Cholelithiasis Status: Acute Current Visit: Yes (4) Acute pancreatitis Status: Acute Current Visit: Yes
[2017-04-13] MEDS: risperiDONE 1 MG TABLET PO SCH (20:51)
[2017-04-13] MEDS: cefTRIAXone 1,000 MG in SODIUM CHLORIDE 0.9% 100 ML IV SCH (20:57)
[2017-04-13] MEDS: DOXEPIN 25 MG CAPSULE PO SCH (20:57)
[2017-04-14] MEDS: INSULIN LISPRO 100 UNIT/ML SUBCUT SCH ×4 (00:11→17:32)
[2017-04-14] MEDS: HYDROmorphone 2 MG/1 ML VIAL IV PRN ×5 (04:10→20:19)
--- NOTE | 2017-04-14 09:18 | Post Interventional Procedure ---
Pre-op diagnosis: Obstructive jaundice, pancreatic head mass Post-op diagnosis: same Procedure: 1. PTC 2. CBD stent - 18 x 60 mm Wall Stent 3. Cholangioplasty 12 mm Contrast: Omni 350, 50 cc Flouroscopy: 6.9 min Radiologist: Xavier Montenegro Anesthesia: MAC Specimens: none sent Estimated blood loss: none Complications: none Condition: stable Assessment and Plan - Time spent with patient Time spent with patient: Greater than 30 minutes (1) Obstructive jaundice Status: Acute Assessment and plan: Assessment: Obstructive jaundice, pancreatic head mass, likely neoplasm. Plan: Percutaneous transhepatic cholangiogram with option to place internal/ external biliary drain catheter and/or metal stent at the time of the procedure. Current Visit: Yes
[2017-04-14] MEDS ORDERED: PROPOFOL 200 MG/20 ML VIAL IV ONE (09:43)
[2017-04-14] MEDS ORDERED: ONDANSETRON 4 MG/2 ML VIAL ONE ×2 (09:43→10:14)
[2017-04-14] MEDS ORDERED: KETAMINE 500 MG/10 ML VIAL ONE (09:50)
[2017-04-14] MEDS ORDERED: ONDANSETRON 4 MG/2 ML VIAL IV PRN (10:02)
--- NOTE | 2017-04-14 10:51 | Gastrointestinal Progress Note ---
Assessment and Plan (1) Abdominal pain Status: Acute Assessment and plan: 04/14-Post PTC/stent placement today. No C/o at present. Recheck LFTs tomorrow. Plan and addendum to follow by DR Solis. 04/13-no complaints of abdominal pain at present. CT findings noted as below. Elevated CA-19-9. Repeat LFTs today. Consult IR for possible PTC. Plan an addendum to follow Dr. Solis. 04/09-2 week history of LLQ abdominal pain w/o other associated symptoms. No reports of melena or hematochezia. Gradual weight loss over last several years. Plan and addendum to follow by Dr Solis Current Visit: Yes (2) Jaundice Status: Acute Assessment and plan: 04/14-Post PTC/CBD placement. Recheck LFTs tomorrow. Plan and addendum to follow by Dr Solis. 04/09-Several day history of jaundice with findings of elevated LFTs with bilirubin 6.5, AST 344, ALT 442, and alkaline phosphatase 796. Also findings of elevated lipase at 1199. Ultrasound results noted for sludge in the gallbladder with no shadowing stones and common bile duct at 6 mm. Plan an addendum to followed by Dr. Solis. Current Visit: Yes Gastroenterology - PN: Subj Interval history: CC: Abdominal pain, jaundice Pt is seen, awake and alert. Family at bedside. Dr Montenegro consulted with patient on yesterday and proceeded today with PTC and metal stent placement to the CBD. Patient is having some mild pain at this time however is resting better post procedure after being giving some analgesic. Abdomen is soft, nontender. ROS: Denies SOB or chest pain Exam (Progress Note) - Constitutional Vitals: Period Temp Pulse Resp BP Sys/De Oliveira Pulse Ox Last 24 Hr 96.3 F-99.3 F 50-77 14-22 138-173/50-90 90-97 General appearance: no acute distress, over weight - Head Head exam: Present: normal inspection, normocephalic - Eye Eye exam: Present: scleral icterus, other (lids and conjunctiva unremarkable) - ENT ENT exam: Present: normal exam, normal oropharynx - Neck Neck exam: Present: normal inspection - Respiratory Respiratory exam: Present: clear to auscultation bilaterally. Absent: rales, rhonchi, wheezes - Cardiovascular Cardiovascular exam: Present: regular rate and rhythm. Absent: diastolic murmur , JVD, systolic murmur - GI/Abdominal GI/Abdominal exam: Present: normal bowel sounds, soft. Absent: ascites, distended, mass, organomegaly, tenderness - Extremities Exam Extremities exam: Present: normal inspection, full ROM - Back Exam Back exam: Present: normal inspection - Neurological Exam Neurological exam: Present: alert, altered - Psychiatric Psychiatric exam: Present: normal affect, normal mood - Skin Skin exam: Present: normal color, dry, other (jaundice) Results - Labs CBC & BMP: 04/12/17 06:29 04/12/17 06:29 Lab Results: I have reviewed the past 24 hour labs
--- NOTE | 2017-04-14 11:45 | Interventional Radiology Rpt ---
IR biliary stent new access, Consult to Interventional Rad Indication: Pancreatic cancer. Obstructive jaundice. Unsuccessful ERCP. PERCUTANEOUS TRANSHEPATIC CHOLANGIOGRAM, COMMON BILE DUCT STENT PLACEMENT Description: A formal timeout was performed. Patient was placed under MAC anesthesia. Maximum sterile barrier technique was instituted. Under fluoroscopic guidance, multiple passes were made with an AccuStick needle into the liver between the ninth and 10th ribs from the right midaxillary line. After approximately 6 or 7 passes, bile was aspirated and the needle. Contrast injection was then performed opacifying the biliary collecting system showing peripheral access. A second Chiba needle was then used to reaccessed the liver targeting a more central biliary radicle. After 2 passes, this biliary radicle was cannulated with a wire. The Chiba needle was exchanged for an AccuStick sheath through which a cholangiogram was performed. 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 With minimal effort, the distal CBD stricture was crossed with a Glidewire. Catheter was then advanced over the wire into the small bowel. Position was confirmed with contrast injection. After measuring the length of the stricture, a 18 x 60 mm Wallstent was advanced and deployed across the strictured segment. This was anchored with a 12 mm cholangioplasty. Post stent placement cholangiogram was then performed through the sheath showing patency of the newly stented segment and prompt spillage of bile into the small bowel. No additional intervention was necessary. Access was removed. Patient was awakened from anesthetic and transferred to recovery in stable condition. Contrast: Omnipaque 350, 50 cc. Fluoroscopy: 6.9 minutes, 30 images captured. Impression: 1. Confirmation of distal CBD obstructing malignant stricture. 2. Placement of a 18 x 16 mm Wallstent across the obstructed segment. Stent was dilated to 12 mm without difficulty. PROCEDURE INTERPRETED AT [facility] DEPARTMENT OF RADIOLOGY Final Report Signed by: Xavier Montenegro M.D.
[2017-04-14] MEDS: SODIUM CHLORIDE 0.9% 1,000 ML IV SCH ×2 (11:46→18:09)
[2017-04-14] MEDS: DONEPEZIL 10 MG TABLET PO SCH ×2 (12:51→17:21)
[2017-04-14] MEDS: SERTRALINE 100 MG TABLET PO SCH ×2 (12:51→17:22)
[2017-04-14] MEDS: PANTOPRAZOLE 40 MG TABLET PO SCH ×2 (12:51→17:22)
[2017-04-14] MEDS: ASPIRIN EC 81 MG TABLET PO SCH ×2 (12:51→17:22)
[2017-04-14] MEDS: POLYETHYLENE GLYCOL POWDER 17 GM PACK PO SCH ×2 (12:51→20:20)
--- NOTE | 2017-04-14 15:24 | Hospitalist Progress Note ---
Hospitalist: Subjective Interval history: 87-year-old male with jaundice and pancreatic head mass suspected neoplasm. Patient is doing well after his PTC with stent today by interventional radiology. Overall he is feeling weak and has constipation. Exam - Constitutional Vitals: Period Temp Pulse Resp BP Sys/De Oliveira Pulse Ox Last 24 Hr 96.3 F-99.3 F 50-105 14-22 126-173/50-90 90-98 Exam: General: [No Acute Distress] HEENT: [Jaundice] Neck: [Supple, No JVD] Chest: [Clear to auscultation B/L] CV: [S1 + S2 audible without murmur, gallop or rub] Abd: [soft, NT, Non-distended, BS +] Ext: [No edema] Skin: [No purpura, bruising or rash] Rheumatologic: [No Joint deformities] Neurologic: [No gross sensory deficits] Results - Labs CBC & BMP: 04/12/17 06:29 04/12/17 06:29 - Impressions (1) Obstructive jaundice Status: Acute Assessment and plan: CT Abd revealed mass at the head of the pancreas. ERCP failed to stent common bile duct. Interventional radiology did PTC with cholangioplasty and stent today. We will repeat LFTs in the morning. CA 19-9 was 6682, suggestive of nonoperable pancreatic cancer. He ultimately would need hospice and daughter is aware of that. Current Visit: Yes (2) Alzheimer's dementia Status: Chronic Current Visit: No (3) Cholelithiasis Status: Acute Current Visit: Yes (4) Acute pancreatitis Status: Acute Current Visit: Yes (5) Constipation Status: Acute Current Visit: Yes Continue laxatives (6) Physical deconditioning Status: Acute Current Visit: Yes Daughter is considering physical therapy, I did offer that to her
[2017-04-14] MEDS ORDERED: POLYETHYLENE GLYCOL POWDER 17 GM PACK PO SCH (15:30)
[2017-04-14] MEDS: POLYVINYL ALCOHOL 1.4% OPH SOLN 15 ML BOTTLE BOTH EYES PRN (16:18)
[2017-04-14] MEDS: DOCUSATE SODIUM 100 MG CAPSULE PO SCH (20:19)
[2017-04-14] MEDS: DOXEPIN 25 MG CAPSULE PO SCH (20:19)
[2017-04-14] MEDS: risperiDONE 1 MG TABLET PO SCH (20:19)
[2017-04-14] MEDS: cefTRIAXone 1,000 MG in SODIUM CHLORIDE 0.9% 100 ML IV SCH (20:19)
[2017-04-15] MEDS: SODIUM CHLORIDE 0.9% 1,000 ML IV SCH ×3 (00:03→20:55)
[2017-04-15] MEDS: INSULIN LISPRO 100 UNIT/ML SUBCUT SCH ×5 (00:13→18:41)
[2017-04-15] MEDS: HYDROmorphone 2 MG/1 ML VIAL IV PRN (02:38)
[2017-04-15] MEDS: POLYVINYL ALCOHOL 1.4% OPH SOLN 15 ML BOTTLE BOTH EYES PRN (02:39)
[2017-04-15 06:00] LABS: Bilirubin,Direct 3.4 MG/DL (0.0-0.20); Bilirubin,Indirect 0.5 MG/DL (0.0-1.0); Bilirubin,Total 3.9 MG/DL (0.2-1.0); Calcium 7.9 MG/DL (8.5-10.1); Total Protein 5.2 G/DL (6.4-8.3)
--- NOTE | 2017-04-15 09:19 | Gastrointestinal Progress Note ---
Assessment and Plan (1) Abdominal pain Status: Acute Assessment and plan: 04/15-abdominal pain improved, mild tenderness post procedure yesterday. Appetite slowly increasing. Plan an addendum to follow Dr. Solis. 04/14-Post PTC/stent placement today. No C/o at present. Recheck LFTs tomorrow. Plan and addendum to follow by DR Solis. 04/13-no complaints of abdominal pain at present. CT findings noted as below. Elevated CA-19-9. Repeat LFTs today. Consult IR for possible PTC. Plan an addendum to follow Dr. Solis. 04/09-2 week history of LLQ abdominal pain w/o other associated symptoms. No reports of melena or hematochezia. Gradual weight loss over last several years. Plan and addendum to follow by Dr Solis Current Visit: Yes (2) Jaundice Status: Acute Assessment and plan: 04/15-LFTs trending downward. Bilirubin down from 8.8 down to 3.9. AST 255, ALT 315, alkaline phosphatase 866. To begin physical therapy today. Plan an addendum to followed by Dr. Solis. 04/14-Post PTC/CBD placement. Recheck LFTs tomorrow. Plan and addendum to follow by Dr Solis. 04/09-Several day history of jaundice with findings of elevated LFTs with bilirubin 6.5, AST 344, ALT 442, and alkaline phosphatase 796. Also findings of elevated lipase at 1199. Ultrasound results noted for sludge in the gallbladder with no shadowing stones and common bile duct at 6 mm. Plan an addendum to followed by Dr. Solis. Current Visit: Yes Gastroenterology - PN: Subj Interval history: CC: Abdominal pain, jaundice Patient is seen, awake and alert, with family at bedside. He had an uneventful night and rested well. He denies any abdominal pain this morning. He is taking in more of his diet at this time. Abdomen is soft, mild tenderness. His bilirubin is noted to be trending downward from 8.8 on yesterday to 3.9 today as well as his transaminases. He is noted to be hypokalemic today at 3.0. Physical therapy is to evaluate him today. Patient's daughter states she wishes to take him home upon discharge however at this time she is uncertain as she can handle him. He already has hospice services in place and these will be more than likely continued upon discharge. ROS: Denies shortness of breath or chest Exam (Progress Note) - Constitutional Vitals: Period Temp Pulse Resp BP Sys/De Oliveira Pulse Ox Last 24 Hr 96.7 F-99.0 F 50-105 14-22 126-167/52-70 91-98 General appearance: normal weight, no acute distress - Head Head exam: Present: normal inspection, normocephalic - Eye Eye exam: Present: scleral icterus, other (Lids and conjunctivae are unremarkable) - ENT ENT exam: Present: normal exam, normal oropharynx - Neck Neck exam: Present: normal inspection - Respiratory Respiratory exam: Present: clear to auscultation bilaterally. Absent: rales, rhonchi, wheezes - Cardiovascular Cardiovascular exam: Present: regular rate and rhythm. Absent: diastolic murmur , JVD, systolic murmur - GI/Abdominal GI/Abdominal exam: Present: normal bowel sounds, soft. Absent: ascites, distended, mass, organomegaly, tenderness - Extremities Exam Extremities exam: Present: normal inspection, full ROM - Back Exam Back exam: Present: normal inspection - Neurological Exam Neurological exam: Present: alert, oriented X3 - Psychiatric Psychiatric exam: Present: normal affect, normal mood - Skin Skin exam: Present: warm, dry, other (Jaundice) Results - Labs CBC & BMP: 04/12/17 06:29 04/15/17 04:48 Lab Results: I have reviewed the past 24 hour labs
[2017-04-15] MEDS: PANTOPRAZOLE 40 MG TABLET PO SCH (10:42)
[2017-04-15] MEDS: DOCUSATE SODIUM 100 MG CAPSULE PO SCH ×2 (10:42→20:57)
[2017-04-15] MEDS: DONEPEZIL 10 MG TABLET PO SCH (10:42)
[2017-04-15] MEDS: ASPIRIN EC 81 MG TABLET PO SCH (10:42)
[2017-04-15] MEDS: SERTRALINE 100 MG TABLET PO SCH (10:43)
[2017-04-15] MEDS: POLYETHYLENE GLYCOL POWDER 17 GM PACK PO SCH ×2 (10:47→20:55)
--- NOTE | 2017-04-15 11:19 | Anesthesia Post-Op ---
Anesthesia Post OP - Post Ansesthetic Evaluation Patient seen in post op: Yes Resp: within normal limits CV: within normal limits Mental: within normal limits Temp: within normal limits Wsky-Kn-Exylkkzak: within normal limits Nausea and Vomiting: within normal limits Pain: within normal limits
--- NOTE | 2017-04-15 13:41 | Hospitalist Progress Note ---
Assessment and Plan (1) Jaundice Status: Acute Assessment and plan: The patient has obstructive jaundice. Stent has been placed in the common bile duct and jaundice is improving. I am going to supplement potassium and recheck that in the morning. Current Visit: Yes (2) Alzheimer's dementia Status: Chronic Current Visit: No (3) Cholelithiasis Status: Acute Current Visit: Yes (4) Acute pancreatitis Status: Acute Current Visit: Yes Hospitalist: Subjective Interval history: The patient had successful stenting of the common bile duct yesterday by Dr. Montenegro. Jaundice is improving dramatically. Exam - Constitutional Vitals: Period Temp Pulse Resp BP Sys/De Oliveira Pulse Ox Last 24 Hr 96.7 F-99.0 F 59-82 16-22 131-172/55-70 91-98 General appearance: mild distress - Head Head exam: Present: normocephalic - Respiratory Respiratory exam: Present: clear to auscultation bilaterally - Cardiovascular Cardiovascular exam: Present: regular rate and rhythm - GI/Abdominal GI/Abdominal exam: Present: normal bowel sounds Results - Labs CBC & BMP: 04/12/17 06:29 04/15/17 04:48 Lab Results: I have reviewed the past 24 hour labs
[2017-04-15] MEDS: LEVOFLOXACIN INJ 750 MG in PREMIX 1 EACH IV SCH (16:10)
[2017-04-15] MEDS: POTASSIUM CHLORIDE 20 MEQ TABLET PO SCH ×3 (16:12→21:00)
[2017-04-15] MEDS: risperiDONE 1 MG TABLET PO SCH (20:53)
[2017-04-15] MEDS: DOXEPIN 25 MG CAPSULE PO SCH (20:54)
[2017-04-15] MEDS: cefTRIAXone 1,000 MG in SODIUM CHLORIDE 0.9% 100 ML IV SCH (20:55)
[2017-04-16] MEDS: INSULIN LISPRO 100 UNIT/ML SUBCUT SCH ×4 (00:07→18:50)
[2017-04-16] MEDS: POTASSIUM CHLORIDE 20 MEQ TABLET PO SCH (03:23)
[2017-04-16] MEDS: SODIUM CHLORIDE 0.9% 1,000 ML IV SCH ×3 (03:24→21:01)
[2017-04-16 07:50] LABS: Albumin 2.1 G/DL (3.4-5.0); Bilirubin,Total 3.2 MG/DL (0.2-1.0); Calcium 8.2 MG/DL (8.5-10.1); Magnesium 1.8 MG/DL (1.8-2.4); Potassium 3.3 MMOL/L (3.5-5.1); Total Protein 5.3 G/DL (6.4-8.3)
[2017-04-16] MEDS ORDERED: ONDANSETRON ODT 4 MG TABLET PO PRN (08:34)
[2017-04-16] MEDS: DOCUSATE SODIUM 100 MG CAPSULE PO SCH ×2 (15:49→20:56)
[2017-04-16] MEDS: POLYETHYLENE GLYCOL POWDER 17 GM PACK PO SCH ×2 (15:49→21:01)
[2017-04-16] MEDS ORDERED: PROMETHAZINE 25 MG TABLET PO PRN (16:36)
[2017-04-16] MEDS ORDERED: fentaNYL 25 MCG/HR PATCH TRANSDERM SCH (17:00)
[2017-04-16] MEDS: LEVOFLOXACIN INJ 750 MG in PREMIX 1 EACH IV SCH (17:02)
--- NOTE | 2017-04-16 19:10 | Hospitalist Progress Note ---
Hospitalist: Subjective Interval history: Patient still has abdominal pain and some nausea Exam - Constitutional Vitals: Period Temp Pulse Resp BP Sys/De Oliveira Pulse Ox Last 24 Hr 97.8 F-100.5 F 56-80 16-20 121-173/62-87 92-95 Exam: General: [No Acute Distress] HEENT: [Jaundice] Neck: [Supple, No JVD] Chest: [Clear to auscultation B/L] CV: [S1 + S2 audible without murmur, gallop or rub] Abd: [soft, NT, Non-distended, BS +] Ext: [No edema] Skin: [No purpura, bruising or rash] Rheumatologic: [No Joint deformities] Neurologic: [No gross sensory deficits] Results - Labs CBC & BMP: 04/12/17 06:29 04/16/17 06:57 - Impressions Assessment and Plan (1) Obstructive jaundice Status: Acute Assessment and plan: The patient has obstructive jaundice, likely due to Ca Pancreas, s/p stent in the common bile duct and jaundice is improving. I am going to sup Current Visit: Yes (2) Alzheimer's dementia Status: Chronic Current Visit: No (3) Cholelithiasis Status: Acute Current Visit: Yes (4) Acute pancreatitis Status: Acute Current Visit: Yes (5) Hypokalemia Status: Acute Current Visit: Yes Erlin Tan
[2017-04-16] MEDS: DONEPEZIL 10 MG TABLET PO SCH (19:32)
[2017-04-16] MEDS: PANTOPRAZOLE 40 MG TABLET PO SCH (19:32)
[2017-04-16] MEDS: ASPIRIN EC 81 MG TABLET PO SCH (19:32)
[2017-04-16] MEDS: SERTRALINE 100 MG TABLET PO SCH (19:32)
[2017-04-16] MEDS: DOXEPIN 25 MG CAPSULE PO SCH (20:55)
[2017-04-16] MEDS: risperiDONE 1 MG TABLET PO SCH (20:56)
[2017-04-16] MEDS: cefTRIAXone 1,000 MG in SODIUM CHLORIDE 0.9% 100 ML IV SCH (20:59)
[2017-04-16] MEDS: ZINC OXIDE 16% PASTE 57 GM TUBE TOP SCH (20:59)
[2017-04-17] MEDS: INSULIN LISPRO 100 UNIT/ML SUBCUT SCH ×3 (00:13→12:07)
[2017-04-17] MEDS: SODIUM CHLORIDE 0.9% 1,000 ML IV SCH ×2 (06:04→10:15)
[2017-04-17 06:51] LABS: Calcium 7.9 MG/DL (8.5-10.1); Osmolality,Calculated 290.8 MOS/KG (273-304); Potassium 3.2 MMOL/L (3.5-5.1)
[2017-04-17] MEDS ORDERED: POTASSIUM CHLORIDE 20 MEQ TABLET PO SCH (09:00)
[2017-04-17] MEDS: PANTOPRAZOLE 40 MG TABLET PO SCH (10:10)
[2017-04-17] MEDS: DOCUSATE SODIUM 100 MG CAPSULE PO SCH (10:10)
[2017-04-17] MEDS: SERTRALINE 100 MG TABLET PO SCH (10:10)
[2017-04-17] MEDS: ASPIRIN EC 81 MG TABLET PO SCH (10:10)
[2017-04-17] MEDS: DONEPEZIL 10 MG TABLET PO SCH (10:10)
[2017-04-17] MEDS: POLYETHYLENE GLYCOL POWDER 17 GM PACK PO SCH (10:11)
[2017-04-17] MEDS: ZINC OXIDE 16% PASTE 57 GM TUBE TOP SCH (10:11)
[2017-04-17] MEDS ORDERED: SPIRONOLACTONE 25 MG TABLET PO SCH (10:30)
--- NOTE | 2017-04-17 14:50 | Discharge Summary ---
Hospital Course - Hospital Course Hospital Course: 87 year old male who was admitted to the hospital with a two-week history of lower abdominal pain and painless obstructive jaundice. Patient had a prior history of dementia, diabetes mellitus, hypertension, Alzheimer's, CAD, and aortic valve replacement. Patient began complaining of some lower quadrant abdominal pain approximately 2 weeks ago. He reported no other associated symptoms along with this including any bowel habit changes, melena, or hematochezia. He deniesd any other associated factors including nausea or vomiting. Patient's daughter stated that several days ago he began to notice that his urine became darker and his skin was beginning to yellow. He was seen at the [place] and noted at that time to have elevated liver enzymes as well as a possible urinary tract infection. On admission on ultrasound he was noted to have sludge in the gallbladder with no classic shadowing stones and a common bile duct of 6 mm. There was also no biliary dilation noted of significance. His daughter reported that he has had some gradual weight loss over the last several years. GI was consulted and attempted an ERCP however it was unsuccessful. For interventional radiology was consulted and he underwent PTCA with stent placement his CA 199 level was very high suggestive of cancer of the pancreas. After PTC he is jaundice and total bilirubin level started improving. Can also had acute biliary pancreatitis and choledocholithiasis which resolved with conservative management. His abdominal pain persisted after PTC which was suggestive of cancer of the pancreas was started on [place] as well as Duragesic patch. Family requested hospice which has been seen which has been arranged by psychosocial rehabilitation counselor and case monitor. She is pain is better controlled with narcotics. The patient was not felt to be candidate for any kind of surgery due to advanced disease. His electrolytes and hypokalemia was treated. He is now in stable condition for discharge home with hospice. - Time spent with patient Time with patient DS: Greater than 30 minutes Diagnosis - Discharge Diagnosis (1) Obstructive jaundice Status: Resolved (2) Acute pancreatitis Status: Resolved Discharge Plan - Discharge Medications New Docusate Sodium Cap [Colace Cap] 100 mg PO BID capsule fentaNYL 25 MCG/HR PATCH [Duragesic 25 Patch] 1 patch TRANSDERM Q3DAY #7 patch HYDROcodone/ACETAMIN 5-325 [[place] 5-325] 1 tablet PO Q4H PRN #60 tablet PRN Reason: Pain Mild (1-3) Ondansetron Odt Tab [Zofran Odt] 8 mg PO Q6H PRN #30 tablet PRN Reason: Nausea/Vomiting Polyvinyl Alcohol 1.4% Oph Reba [Artificial Tears Oph Soln] 1 drop BOTH EYES TID PRN #1 bottle PRN Reason: Dry Eyes Potassium Chloride Cap/Tab [K Dur] 40 meq PO DAILY #30 tablet Spironolactone [Aldactone] 25 mg PO DAILY #30 tablet Zinc Oxide 16% Paste [Rose's Butt Paste] 1 applic TOP BID #1 applic Polyethylene Glycol Powder [Miralax] 17 gm PO BID Promethazine Tab [Phenergan Tab] 12.5 mg PO Q4H PRN #30 tablet PRN Reason: Nausea/Vomiting Continue Multivitamin [Multivitamins] 1 tablet PO QAM [place]-3S/Dha/Epa/Fish Oil [Fish Oil 1,200 mg Softgel] 2 each PO BID Sertraline HCl 50 mg PO QAM Ranitidine Tab [Zantac Tab] 150 mg PO BID Risperidone 0.5 mg PO BEDTIME Gabapentin [Neurontin] 400 mg PO 0800,1400,2000 Doxepin HCl 50 mg PO BEDTIME Memantine HCl 10 mg PO BID Donepezil HCl 10 mg PO QAM Cetirizine HCl [Cetirizine Tab] 10 mg PO QAM Aspirin EC Tab 1 tablet PO QAM Gluc/Kemal-MSM#1/C/Min/Esteban/Bor [Osteo Bi-Flex Caplet] 1 each PO BID Alfuzosin HCl [Alfuzosin HCl ER] 10 mg PO QPM Insulin NPH Hum/Reg Insulin Hm [NovoLIN 70/30] 46 unit SUBCUT BID PRN PRN Reason: Glucose Management Nitroglycerin Sl Tab [Nitrostat] 0.4 mg SL Q5M PRN #0 tablet PRN Reason: Chest Pain Lisinopril 2.5 mg PO QAM Acetaminophen 325 mg PO BID PRN PRN Reason: Pain Discontinued Atorvastatin Calcium [Lipitor] 40 mg PO BEDTIME - Follow Up or Referral - Forms/Instructions Exam - Constitutional Vitals: Period Temp Pulse Resp BP Sys/De Oliveira Pulse Ox Last 24 Hr 98.5 F-100.5 F 66-88 16-20 113-173/59-72 92-94 Exam: General: [No Acute Distress] HEENT: [Normocephalic, atraumatic, Extra ocular movements intact] Neck: [Supple, No JVD] Chest: [Clear to auscultation B/L] CV: [S1 + S2 audible without murmur, gallop or rub] Abd: [soft, NT, Non-distended, BS +] Ext: [No edema] Skin: [No purpura, bruising or rash] Rheumatologic: [No Joint deformities] Neurologic: [Strength 5/5 all extremities, no gross sensory deficits] Discharge Results Procedures and tests throughout hospitalization: Pending Orders 04/18/17 04:00 BMP [Basic Metabolic Panel] IN AM Magnesium IN AM Labs on day of discharge: Labs from last 24 hours 04/17/17 04/17/17 04/17/17 11:30 06:05 05:34 Sodium 144 Potassium 3.2 L Chloride 110 H Carbon Dioxide 26 Anion Gap 11.2 BUN 17 Creatinine 1.30 GFR Calculation 64 BUN/Creatinine Ratio 13.00 Glucose 153 H POC Glucose 284 H 181 H Calculated Osmolality 290.8 Calcium 7.9 L 04/17/17 04/16/17 00:09 17:39 Sodium Potassium Chloride Carbon Dioxide Anion Gap BUN Creatinine GFR Calculation BUN/Creatinine Ratio Glucose POC Glucose 244 H 242 H Calculated Osmolality Calcium DS: Provider Date of admission: 04/09/17 13:06 Primary care physician: . No PCP Attending physician on admission: John Christy MD Consults: 04/09/17 13:07 Consult to Physician [CONS] Routine Comment: jaundice consistent with biliary obstruction Consulting Provider: James Solis Consulting Provider Notified: Yes When should Consulting Provider be notified: Now Consult to Specialist Group: Gastroenterology When should Consulting Provider be notified: Now Person Notified: MOMO Date Notified: 04/09/17 Time Notified: 15:23 04/09/17 15:07 Consult to Dietitian [CONS] Routine Reason for Dietitian: Diet Recommendations 04/13/17 14:50 Consult to Anesthesiology [CONS] Routine Consulting Provider: Reason for Anesthesiology: Pre-op Clearance Consult Comment: ANESTHESIA CONSULT FOR PERC CHOLANGIOGRAM IN SP2/XRAY DR PALAFOX 04/14/17 17:34 Consult to Physical Therapy [CONS] Routine Reason for Physical Therapy: Evaluate and Treat Start Therapy: Tomorrow Consult Comment: Pancreatic CA. Was ambulating on walker last week Discharging clinician: Joselin Cheng MD
[2017-04-17] MEDS: LEVOFLOXACIN INJ 750 MG in PREMIX 1 EACH IV SCH (15:03)
[2017-04-17 15:55] VITALS: BP 127/61
== END 2017-04-17 17:21 | disposition hospice, home (50) | DRG 435 ==
LOC: N.ED 10:12 → SUATTDRO 13:06 → N.EDINP 13:06 → N.4E 13:58
PROVIDERS: ADMIT Internal Medicine; ATTEND Hospitalist